=== PATIENT | female | born 1995 | race Caucasian/White ===

== ENCOUNTER 2017-12-27 11:33 | Emergency (ER) | payer BC ==
[2017-12-27 13:36] LABS: Amnisure Test No Membranes Rupture (No Rupture)
[2017-12-27 13:37] LABS: Amnisure Internal Control QC ACCEPTABLE (ACCEPTABLE)
--- NOTE | 2017-12-27 13:48 | ULT ---
OB ULTRASOUND: Date: 12/27/17 HISTORY: Leaking fluid. FINDINGS: A single live intrauterine gestation is seen with measurements corresponding to an estimated gestatio nal age of 15 weeks/0 days and OSKAR at 06/20/18. The estimated weight measures 109 gm, or 4 oz. measurements are as follows: BPD: 3.04 cm, 15 weeks/4 days HC: 11.42 cm, 15 weeks/4 days AC: 9.24 cm, 15 weeks/3 days FL: 1.4 cm, 14 weeks/1 day The heart rate measures 153 beats/minute. Cervical length measures 2.6 cm. Placenta is anterior ly located without evidence of placenta previa. Amniotic fluid appears adequate. IMPRESSION: Single live intrauterine of 15 weeks estimated gestational age and OSKAR at 06/20/18. POS: PATRIA
== END 2017-12-27 14:06 | disposition home or self-care (01) ==
LOC: ERS 11:33
DX: O99.89 Other specified diseases and conditions complicating pregnancy, childbirth and the puerperium (principal); Z3A.16 16 weeks gestation of pregnancy
CPT/HCPCS: 76805; 84112

== ENCOUNTER 2018-03-12 07:41 | Inpatient (IN) | payer BC, MEDICAID, SELFPAY ==
[2018-03-12] MEDS ORDERED: Betamet Acet/Betamet Na Ph 30 MG/5 ML VIAL ONE (07:57)
[2018-03-12] MEDS ORDERED: Magnesium Sulfate 20 gm/500 ml 20 GM/500 ML BAG ONE (07:57)
[2018-03-12] MEDS ORDERED: NS / Oxytocin 40 units/1000ml 1,000 ML ONE (08:09)
[2018-03-12] MEDS ORDERED: Ondansetron PF 4 MG/2 ML Vial ONE ×3 (08:22→15:13)
[2018-03-12 08:31] VITALS: BMI 28.9
[2018-03-12] MEDS ORDERED: Penicillin G Potassium 5 MILL.UNITS VIAL ONE (08:36)
[2018-03-12] MEDS ORDERED: Sodium Chloride 0.9% 100 ML ONE (08:37)
[2018-03-12] MEDS ORDERED: Butorphanol Tartrate 1 MG/ML VIAL ONE (08:55)
--- NOTE | 2018-03-12 09:00 | HP ---
DATE OF SERVICE: 03/12/2018 TIME OF SERVICE: 0830 PRESENTING COMPLAINT: Water broke with twins at 24 weeks gestation. HISTORY OF PRESENT ILLNESS: Ms. Tran is a 23-year-old 1, para 0 with a final OSKAR of 06/28 placing her at 24 weeks and [address] Sanchez at [facility]. She has been known to have dichorionic diamniotic twins and has been followed closely by Dr. Sanchez. She saw Dr. Sergio Duron [place] on 03/08/2018. The patient reports onset of cramps with spontaneous ruptur e of membranes at approximately 0630 this morning. She feels pressure. She reports active fetus. S he denies vaginal bleeding. 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 Blood type O positive, antibody negative, Pap negative, rubella immun e, VDRL nonreactive, hepatitis B, GC chlamydia negative. Initial hematocrit 41%. Urine culture nega tive, rubella immune, 50 gram was 139. First trimester aneuploidy screening was negative. Urinalysi s and urine culture were negative. TSH was within normal limits. Three hour GTT was within normal l imits. The patient's OB record has been complicated by polyhydramnios with her fetus on the right wi th a max vertical pocket of 10 cm, cervical length has been within normal limits. PAST MEDICAL HISTORY: None. PAST SURGICAL HISTORY: Back surgeries with multiple level fusions from L3 to S1. MEDICATIONS: Zofran. ALLERGIES: Denies. SOCIAL HISTORY: Denies tobacco, alcohol, or drug use. FAMILY HISTORY/REVIEW OF SYSTEMS: Noncontributory. PHYSICAL EXAMINATION: GENERAL: White female in no acute distress. VITAL SIGNS: Weight 165 pounds, blood pressure 120/72, temperature 96, respirations 18. HEENT: Within normal limits. LUNGS: Clear to auscultation bilaterally. HEART: Regular rhythm. BREASTS: No masses bilaterally. ABDOMEN: Soft, nontender with palpable contractions about every 5 minutes. Fundal height is 28 cm. FHTs are 140s and 150s. PELVIC: Vulva without lesions. Vagina is with clear fluid. Cervix is 4, complete, -1, cephalic. EXTREMITIES: Without clubbing, cyanosis or edema. Bedside ultrasound reveals fetus one on the patient's left, cephalic presentation with low fluid subj ectively, fetus #2 is on the maternal right with the head in the right upper quadrant in transverse p resentation. IMPRESSION: Premature rupture of membranes with labor at 24 weeks and 4 days by kristian pickett gestational criteria based on a 10-week crown rump length ultrasound. PLAN: 1. Magnesium sulfate 4 gram load, 2 grams per hour for neuro protective and tocolytic effect. 2. betamethasone 12 mg IM q.24 hours x2 doses. 3. Group B strep prophylaxis with penicillin 5 million, then 2.5 million units. 4. Neonatology and anesthesia consult. 5. We will discuss the patient's care with Dr. Sergio Duron in [place]. 6. Anticipate not being able to transfer patient to a higher level facility secondary to active labo r and low IFR ceilings at 300 feet currently.
--- NOTE | 2018-03-12 09:54 | PRG ---
DATE OF SERVICE: 03/12/2018 TIME OF SERVICE: 09 PHYSICAL EXAMINATION: VITAL SIGNS: The patient's temperature is 98.9, respirations 18, blood pressure 132/74, pulse 85. Electronic monitoring reveals twins, pulse is 130s to 150s, positive accelerations, no decels. Category 1 heart rate tracing. Contractions are noted to be firm and indentable q.4 minutes. This seems relatively unchanged since admission. LUNGS: Clear to auscultation bilaterally. HEART: Regular rhythm. ABDOMEN: Soft with a fundal height of 28 cm between contractions. PELVIC: Vulva is without lesions. Vagina is continuing with amniotic fluid. A Knight catheter was p laced. Cervix was checked by RN and noted to be 4-5, 90 and 0 station, cephalic. Face to face encounter time approximately 20 minutes has been spent with the patient discussing her care. Risks and benefits of transport versus keeping in the therapeutic plan. HISTORY OF PRESENT ILLNESS: Telephone consultation was carried out with Dr. Sergio Duron M.D., [facility] in [place]. Dr. Duron saw the patient on 03/08/2018. His consultation report w as obtained by fax. It reveals an estimated weight of approximately 675-700 grams for both fet uses with normal anatomic survey's and mild polyhydramnios noted at that time. He feels that polyhyd ramnios is likely due to impaired glucose tolerance without overt gestational diabetes. Dr. Duron agrees that transport does not seem to be the likely best option at this time as the patient continue s to contract, has relatively advanced cervical change and would require ground transport secondary t o weather conditions. Consultation was carried out in discussion with Dr. Zheng, Neonatology for [facility]. Dr. Zheng understands the issues with the patient. Plan for delayed cord clamping if delivery occu rs was discussed as well. The plan continues to be continued antibiotics, magnesium, and betamethasone. If significant cervica l change occurs we will proceed with primary section. The patient understands likely need f or transport to [facility] after delivery.
[2018-03-12] MEDS ORDERED: CEFAZOLIN 2 GM/50 ML BAG ONE ×2 (10:37→10:39)
[2018-03-12] MEDS ORDERED: Bicitra 30 ML UDCUP PO SCH (10:38)
[2018-03-12] MEDS ORDERED: Ondansetron PF 4 MG/2 ML Vial IVP PRN ×4 (10:38→16:30)
[2018-03-12] MEDS ORDERED: Magnesium Sulfate 20 GM/WATER 500 ML BAG IVPB SCH (10:38)
[2018-03-12] MEDS ORDERED: Magnesium Sulfate 20 gm/500 ml 20 GM/500 ML BAG IVPB SCH (10:38)
[2018-03-12] MEDS ORDERED: Promethazine HCl 25 MG/ML VIAL IM PRN ×3 (10:38→16:30)
[2018-03-12] MEDS ORDERED: Penicillin G 2.5 MILL.units 2.5 MILL.UNITS in Premix Bag 1 BAG IVPB SCH (10:38)
[2018-03-12] MEDS ORDERED: Penicillin G Potassium 5 MILL.UNITS in Sodium Chloride 0.9% 100 ML IVPB SCH (10:38)
[2018-03-12] MEDS ORDERED: Lactated Ringer's 1,000 ML IV SCH ×3 (10:38→15:12)
[2018-03-12] MEDS ORDERED: CEFAZOLIN/Water 2 GM/20 ML SYRINGE SLOW IVP SCH (10:38)
[2018-03-12] MEDS ORDERED: Butorphanol Tartrate 1 MG/ML VIAL SLOW IVP PRN (10:38)
[2018-03-12] MEDS ORDERED: Calcium Gluc 4.6 MEQ/10 ML (100 MG/ML) SLOW IVP PRN (10:38)
[2018-03-12] MEDS ORDERED: Betamet Acet/Betamet Na Ph 30 MG/5 ML VIAL IM SCH (10:38)
[2018-03-12] MEDS ORDERED: Bicitra 30 ML UDCUP ONE (10:55)
[2018-03-12] MEDS ORDERED: Fentanyl 100 MCG/2 ML VIAL ONE (11:00)
[2018-03-12] MEDS ORDERED: Morphine PF 1 MG/ML SYR ONE (11:01)
[2018-03-12] MEDS ORDERED: Lidocaine 1% (PF) 30 ML VIAL ONE (11:01)
[2018-03-12] MEDS ORDERED: Ketorolac Tromethamine 30 MG/ML VIAL ONE ×2 (11:01→15:13)
[2018-03-12] MEDS ORDERED: Bupivacaine 0.75% W/DEXTROSE 8.25% 2 ML AMP ONE (11:01)
[2018-03-12] MEDS ORDERED: PHENYLEPHRINE-NS 100 MCG/ML 10 ML SYRINGE ONE (11:02)
[2018-03-12] MEDS ORDERED: Oxytocin 10 UNITS/ML VIAL ONE (11:02)
[2018-03-12 11:03] LABS: Hemoglobin 12.8 g/dL (12.0-16.0); Mean Corpuscular HGB CONC 31.1 g/dL (32.0-36.0); Mean Corpuscular Volume 83.4 fL (78.0-98.0); Platelet Count 211 thou/uL (130-400); RBC Distribution Width 11.8 % (11.5-14.5); Red Blood Cell (RBC) Count 4.93 mill/uL (4.20-5.40); White Blood Cell (WBC) Count 11.6 thou/uL (4.8-10.8)
--- NOTE | 2018-03-12 11:10 | PRG ---
DATE OF SERVICE: 03/12/2018 TIME OF SERVICE: 1100 hours on 03/12/2018. The patient had increased loss of water and pressure. On my exam, she is 6-7 cm, +1 station and comp letely effaced. A discussion has been made with the patient as well as consultation with Maternal [facility] gio Medicine and Neonatology. Decision was made to go ahead and proceed with primary sectio n. Anesthesia has been notified and were aware of the patient before. We will administer appropriat e antibiotic and DVT prophylaxis. We will proceed with primary section with low anticipated low vertical uterine incision.
[2018-03-12 11:45] LABS: HBSAg Index 0.17 S/CO (0-0.99); Hep B Surf Ag Non-Reactive S/CO (NonReactive); Syphilis Antibody Nonreactive (Nonreactive); Syphilis Antibody Index 0.04 S/CO (<1.00 Non-Reactive)
[2018-03-12] MEDS ORDERED: Ondansetron HCl/PF 4 MG/2 ML Vial IVP PRN (12:03)
[2018-03-12] MEDS ORDERED: Promethazine HCl 25 MG SUPP PR PRN ×2 (12:03→16:30)
[2018-03-12] MEDS ORDERED: Naloxone HCl 0.4 mg/ml Vial IV PRN ×3 (12:03→16:29)
[2018-03-12] MEDS ORDERED: Naloxone HCl 0.4 mg/ml Vial IVP PRN ×3 (12:03→16:30)
[2018-03-12] MEDS ORDERED: diphenhydrAMINE 50 MG/ML VIAL IVP PRN ×2 (12:03→16:21)
[2018-03-12] MEDS ORDERED: Eucerin (Mineral Oil/Petrolatum,White) 30 gm Jar TOP PRN (12:03)
[2018-03-12] MEDS ORDERED: Acetaminophen 1,000 MG in Premix Bag 1 BAG IVPB PRN ×2 (12:06→16:28)
[2018-03-12] MEDS ORDERED: Communication Order-Pharmacy FS SCH (12:15)
--- NOTE | 2018-03-12 12:33 | OP ---
DATE OF PROCEDURE: 03/12/2018 TIME OF SURGERY: Approximately 11:30 PREOPERATIVE DIAGNOSES: A 24-25 weeks gestation twin , cephalic transverse, active labor, r upture of membranes with history of previous back surgery. POSTOPERATIVE DIAGNOSIS: A 24-25 weeks gestation twin , cephalic transverse, active labor, rupture of membranes with history of previous back surgery. PROCEDURE: Primary low vertical hysterotomy, section without extension. SURGEON: Phoenix Darling M.D. DIRECTOR [place]: Akosua Gillette M.D., PGY-2. ANESTHESIA: Subarachnoid block, Bailey Duke M.D. ANTIBIOTIC PROPHYLAXIS: Two grams Ancef preincision. DVT PROPHYLAXIS: SCDs. ESTIMATED BLOOD LOSS: Approximately [id number]. QBL: Pending. DRAINS: Knight to gravity. OPERATIVE FINDINGS: 1. Male , weight and Apgars pending, to NICU, twin A cephalic presentation with head at +1 sta tion with breech extraction through a low vertical uterine incision maintaining head flexion througho ut delivery. 2. Back up transverse lie, twin B male, weight and Apgars pending, delivered cephalically low vertic al uterine incision. 3. Delayed cord clamping x2. 4. Placenta removed and sent for pathologic analysis. 5. Low vertical hysterotomy incision without extension, closed in a 2 layer closure. 6. Hemostasis with clear urine and counts correct at the end of the procedure. DISPOSITION: To the recovery room in good condition. DESCRIPTION OF OPERATIVE PROCEDURE: After obtaining proper informed consent, the patient was taken t o the operating room. Subarachnoid block achieved without difficulty. The patient prepped and drape d in usual manner. Pfannenstiel incision made, carried down to the fascia midline, incised sharply s uperior and laterally with curved Trevino scissors. Rectus dissected off sharply superiorly and inferio rly, divided in midline, peritoneum entered bluntly, taking care to avoid trauma to underlying viscer a. The Paul 0 retractor placed inside. Bladder flap was dissected off the lower uterine segment. Lower uterine segment was felt to be well developed, but because of the transverse lie of twin B as well as the low position in the pelvis of twin A the decision was made to do a low vertical incision. This was performed, it was obvious because of the position that breech extraction of twin A w ould be necessary. The control operator's hands were placed anterior, posterior to the head and the control operator 's middle finger placed over the 's face and it was delivered in breech extraction technique ma intaining flexion of the neck. This was handed off to Neonatology in attendance after placing on the abdomen for delayed cord clamping. Twin B was delivered cephalic from the 's head being desce nded down from the right upper quadrant and placed on the abdomen as well. Both infants were covered with plastic to maintain temperature for approximately 30-45 seconds prior to delayed cord clamping. Cord clamping was achieved and they were handed off to snuff blender in attendance. Usual cord blo od samples obtained. Placenta delivered manually sent for pathologic analysis. Hysterotomy was insp ected and noted to be without extension. It was closed in a two-layer closure using #1 Monocryl sutu re. The bladder was noted to be well below the apex of the low vertical incision. After closure, be cause of the low vertical nature of the incision it was somewhat oozy on the hysterotomy. Pressure w as applied and then FloSeal was applied with pressure held for 3 minutes. Ater removal of moist lap after applying FloSeal no further hemorrhage was noted. Gutters were irrigated out bilaterally. Kory nspection of hysterotomy revealed it to be dry. The Paul O retractor removed. The fascia reapprox imated after inspecting the rectus and noting it to be dry using an 0 PDS suture x2. Subcutaneous ti ssue irrigated, rendered hemostatic with Bovie cautery and reapproximated using 2-0 plain gut and sub cuticular Monocryl and Dermabond. The patient was taken to recovery room in good condition. YOSHI mejia.
[2018-03-12] MEDS ORDERED: Methylergonovine 0.2 MG/ML VIAL ONE (14:36)
[2018-03-12] MEDS ORDERED: Varicella virus, LIVE 0.5 ML VIAL SC ONE (15:12)
[2018-03-12] MEDS ORDERED: Meperidine HCl/PF 25 MG/ML VIAL IM PRN (15:12)
[2018-03-12] MEDS ORDERED: Lanolin Ointment 7 GM TUBE TOP PRN (15:12)
[2018-03-12] MEDS ORDERED: Bisacodyl 10 MG SUPP PR PRN (15:12)
[2018-03-12] MEDS ORDERED: diphenhydrAMINE 25 MG CAP PO PRN (15:12)
[2018-03-12] MEDS ORDERED: Measles/Mumps/Rubella 10 MCG/0.5 ML VIAL SC ONE (15:12)
[2018-03-12] MEDS ORDERED: Methylergonovine 0.2 MG/ML VIAL IM PRN (15:12)
[2018-03-12] MEDS ORDERED: NS / Oxytocin 40 units/1000ml 1,000 ML IV SCH (15:12)
[2018-03-12] MEDS ORDERED: Adacel (T-DAP) 0.5 ML VIAL IM ONE (15:12)
[2018-03-12] MEDS ORDERED: HYDROcodone/Acetaminophen 5/325 mg Tablet PO PRN ×2 (15:12)
[2018-03-12] MEDS ORDERED: Fentanyl 100 MCG/2 ML VIAL SLOW IVP SCH (15:55)
[2018-03-12] MEDS: Ibuprofen 800 MG TAB PO SCH (16:27)
[2018-03-12] MEDS ORDERED: Hydrocerin (Eucerin) Cream 120 gm Jar TOP PRN (16:30)
[2018-03-12] MEDS ORDERED: Ketorolac Tromethamine 30 MG/ML VIAL IVP PRN (16:30)
[2018-03-12] MEDS ORDERED: Ketorolac Tromethamine 30 MG/ML VIAL IVP SCH (18:00)
[2018-03-12] MEDS: Docusate Calcium (SURFAK) 240 MG CAP PO SCH (22:13)
[2018-03-13] MEDS: Ibuprofen 800 MG TAB PO SCH ×4 (03:47→21:09)
[2018-03-13 06:01] LABS: Hemoglobin 9.5 g/dL (12.0-16.0); Mean Corpuscular HGB CONC 32.1 g/dL (32.0-36.0); Mean Corpuscular Hemoglobin 27.1 pg (27.0-31.0); Mean Corpuscular Volume 84.4 fL (78.0-98.0); Mean Platelet Volume 9.4 fL (7.4-10.4); Platelet Count 171 thou/uL (130-400); RBC Distribution Width 11.5 % (11.5-14.5); Red Blood Cell (RBC) Count 3.52 mill/uL (4.20-5.40); White Blood Cell (WBC) Count 11.4 thou/uL (4.8-10.8)
[2018-03-13] MEDS: Prenatal Vitamin 1 TAB PO SCH (08:22)
[2018-03-13] MEDS: Docusate Calcium (SURFAK) 240 MG CAP PO SCH ×2 (08:22→21:10)
[2018-03-13] MEDS: Simethicone Chewable 80 MG TAB PO PRN ×2 (08:22→16:17)
[2018-03-13] MEDS: HYDROcodone/Acetaminophen 5/325 mg Tablet PO PRN ×4 (08:23→21:11)
[2018-03-13] MEDS: Zolpidem Tartrate 5 MG TAB PO PRN (21:13)
[2018-03-14] MEDS: Ibuprofen 800 MG TAB PO SCH ×3 (05:43→21:07)
[2018-03-14] MEDS: Simethicone Chewable 80 MG TAB PO PRN (05:44)
[2018-03-14] MEDS: HYDROcodone/Acetaminophen 5/325 mg Tablet PO PRN ×4 (06:18→18:50)
--- NOTE | 2018-03-14 07:55 | PDOC.PP ---
Post Progress Note Post Day #: 2 PO intake tolerated: yes Flatus: yes Ambulation: yes Vital Signs (12 hours) Temp Pulse Resp BP Pulse Ox 03/14/18 07:47 97.9 F 64 18 119/75 98 03/14/18 03:49 98.1 F 70 16 115/70 98 Weight Weight 174 lb - Physical Examination Respiratory: clear to auscultation bilaterally Abdominal: + bowel sounds, lochia, no distention, appropriately TTP Extremities: negative homans (B) Result Diagrams: 03/13/18 05:35 Additional Labs: Post Labs Blood Type O POSITIVE 03/12/18 07:50 Hep Bs Antigen Non-Reactive S/CO (NonReactive) 03/12/18 10:48 - Assessment/Plan post op day 2 from section-labor at 24-25 weeks with twins. Post op course progessing well. Sertraline started for post stress. d/c 03/15.
[2018-03-14] MEDS: Prenatal Vitamin 1 TAB PO SCH (10:49)
[2018-03-14] MEDS: Docusate Calcium (SURFAK) 240 MG CAP PO SCH (10:50)
[2018-03-14] MEDS: Zolpidem Tartrate 5 MG TAB PO PRN (21:39)
[2018-03-15] MEDS: Docusate Calcium (SURFAK) 240 MG CAP PO SCH ×2 (01:35→10:00)
[2018-03-15] MEDS: Ibuprofen 800 MG TAB PO SCH (06:03)
[2018-03-15] MEDS: HYDROcodone/Acetaminophen 5/325 mg Tablet PO PRN (06:08)
--- NOTE | 2018-03-15 08:06 | PDOC.PP ---
Post Progress Note Post Day #: 3 Subjective: Babies remain stable in nicu. Patient ready to go home. PO intake tolerated: yes Flatus: yes Ambulation: yes Weight Weight 174 lb - Physical Examination Abdominal: + bowel sounds, lochia, no distention, appropriately TTP Extremities: negative homans (B) Skin: CS incision dry & intact Result Diagrams: 03/13/18 05:35 Additional Labs: Post Labs Blood Type O POSITIVE 03/12/18 07:50 Hep Bs Antigen Non-Reactive S/CO (NonReactive) 03/12/18 10:48 - Assessment/Plan Post op day 3 from c/s for prterm labor twins at 24-25 weeks. maternal recovery going well. Ready for discharge home. F/u in 6weeks. rx for sertraline and tramadol given.
[2018-03-15 08:09] VITALS: BP 116/80; TEMP 98.1
[2018-03-15] MEDS: Prenatal Vitamin 1 TAB PO SCH (09:45)
== END 2018-03-15 12:50 | disposition home or self-care (01) | DRG 786 ==
LOC: L&D/OP 07:41 → L&D 09:09 → 3SW 14:48
PROVIDERS: ADMIT Obstetrics & Gynecology; ATTEND Obstetrics & Gynecology
PROC: 10D00Z1 Extraction of Products of Conception, Low, Open Approach (ICD-10-PCS; principal; 2018-03-12)
PROC: 3E0T3BZ Introduction of Anesthetic Agent into Peripheral Nerves and Plexi, Percutaneous Approach (ICD-10-PCS; 2018-03-12)
DX: O30.043 Twin pregnancy, dichorionic/diamniotic, third trimester (principal); O60.12X2 Preterm labor second trimester with preterm delivery second trimester, fetus 2; O60.12X1 Preterm labor second trimester with preterm delivery second trimester, fetus 1; Z3A.24 24 weeks gestation of pregnancy; Z37.2 Twins, both liveborn; O40.3XX2 Polyhydramnios, third trimester, fetus 2; O32.2XX2 Maternal care for transverse and oblique lie, fetus 2; O32.1XX1 Maternal care for breech presentation, fetus 1; O30.042 Twin pregnancy, dichorionic/diamniotic, second trimester
CPT/HCPCS: 36415; 51702; 76815; 85027; 86780; 86850; 86900; 86901; 87340; 88305; 90715; 99285; J0131; J0595; J0702; J1885; J2001; J2210; J2274; J2405; J2540; J2590; J3010; J3475; J3490; J7050